=== PATIENT | male | born 1970 | race Caucasian/White ===

== ENCOUNTER 2022-10-11 23:34 | Emergency (ER) | payer SELFPAY ==
[~2022-10-11] VITALS: Ht 182.9 cm; Wt 91.0 kg
[2022-10-12 00:11] VITALS: BP 115/73; PULSE 93; RESP 18; TEMP 98.1; O2SAT 94
== END 2022-10-12 01:08 | disposition left against medical advice (07) ==
LOC: ER 23:34
DX: S01.01XA Laceration without foreign body of scalp, initial encounter (principal); E78.00 Pure hypercholesterolemia, unspecified; W18.39XA Other fall on same level, initial encounter; Y93.89 Activity, other specified; Y92.89 Other specified places as the place of occurrence of the external cause; Y99.8 Other external cause status
CPT/HCPCS: 99283